=== PATIENT | female | born 2000 | race Caucasian/White ===

== ENCOUNTER 2022-01-11 08:24 | Emergency (ER) | payer MEDICAID, SELFPAY ==
[2022-01-11 08:42] VITALS: BP 148/96; PULSE 97; RESP 16; TEMP 36.5; O2SAT 98
--- NOTE | 2022-01-11 08:47 | W.ED.GENAD ---
Discharge Plan Disposition Patient Disposition: HOME Condition: Stable Discharge Details Clinical Impression: examination or test, negative result Primary Care Provider: Ray Heath ED Provider: Joseline Bolanos Home Meds and New Rx's Prescriptions: Continued Abilify Maintena 400 mg Suspension,Extended Rel Recon 400 mg IM QMONTH 0RF ibuprofen [IBU] 600 mg Tablet 600 mg PO PRN PRN0RF levothyroxine 75 mcg Capsule 75 mcg PO DAILY 0RF magnesium oxide 400 mg magnesium Capsule 400 mg PO DAILY 0RF Discharge Instructions Instructions: Heart Healthy Diet (ED) Additional Instructions: Your test today is negative. Call your [place] pharmacy to transfer your Abilify injection to a local pharmacy here in [place] including [facility] and [facility]. You have been placed on care management's list to arrange for a follow-up appointment with a primary care doctor to establish care and to arrange for your monthly Abilify injections, to obtain thyroid and diabetes testing, and for any of your general medical needs. Return to the emergency department with any worsening or new concerning symptoms. Discharge Data Discharge Physician: Joseline Bolanos Medical Decision Making 21-year-old female who presents for request for test. She denies any acute complaints at this time and has only requesting a test. Blood pressure mildly hypertensive, remainder vitals within normal limits. test negative. No obvious acute findings on exam. Patient also stated that she is living in [facility] and is looking for a local doctor to administer her Abilify injections monthly. She states her primary care doctor is in [facility] and she does not have the gas money to travel to their for the injection. She states she has the Abilify IM medication her hotel room at the [facility] in and needs to find a local doctor to administer this. She states she is due for her next injection on January 16. She also states she has not taken her levothyroxine for several months. She also states she has a family history of diabetes. She also complains of a possible stye in her right eye. Right eye normal to inspection. There is a minimal stye noted to the left lower lateral eyelid. She is advised to apply warm compresses and wash her hands frequently and avoid touching the eye. Do not see an indication for antibiotic ointment at this time but she was advised to continue to monitor.. She was offered to check a fingerstick glucose here but she declines. She would rather follow-up with the PCP for this. Patient was placed on care management list to arrange for a follow-up appointment with a local primary care doctor to establish care and to administer her monthly Abilify injections. Also indicated on care management list to obtain thyroid function testing and glucose testing at the PCP. Return immediately to the emergency department if you develop any worsening or new concerning symptoms. Medical Records Medical records reviewed: Yes I reviewed the patient's medical records. HPI General Mode of arrival: ambulatory. Date/Time Provider Initiated Documentation: 01/11/22 08:47. Limitations to Documentation: no limitations. Information obtained by: patient. HPI Narrative: Patient is a 21-year-old female who presents for test. Patient states she cannot afford to obtain a test and felt tired yesterday so she wanted to make sure she is not . She denies any acute symptoms today. 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 Review of Systems All systems reviewed & are unremarkable except as noted in HPI and below Constitutional Constitutional: Reports as per HPI, Denies chills and Denies fever(s) Eyes Eyes: Denies blurry vision ENT Ears, Nose, Mouth, and Throat: Denies dizziness, Denies sore throat and Denies throat swelling Cardiovascular Cardiovascular: Denies chest pain and Denies dyspnea Respiratory Respiratory: Denies cough and Denies dyspnea Gastrointestinal Gastrointestinal: Denies abdominal pain, Denies diarrhea and Denies vomiting Genitourinary Genitourinary: Denies hematuria and Denies dysuria Musculoskeletal Musculoskeletal: Denies back pain and Denies numbness Integumentary/Breasts Skin/Breast: Denies lesions and Denies rash Neurologic Neurologic: Denies dizziness, Denies localized weakness and Denies numbness Allergic/Immunologic Allergic/Immunologic: Denies throat swelling PFSH All Active Problems (Updated 01/11/22 @ 09:03 by Joseline Bolanos DO) examination or test, negative result (Acute) Medical History (Updated 01/11/22 @ 09:03 by Joseline Bolanos DO) Bipolar affective disorder Marlene's disease Hypothyroidism Surgical History (Updated 01/11/22 @ 09:01 by Joseline Bolanos DO) History of adenoidectomy Social History Smoking/Tobacco Use Status: Current every day Tobacco Type: e-cigarettes Smoking risk assessment performed?: Yes Alcohol Intake: never Drug use: Occasionally Substance use type: marijuana Do you feel safe at home: Yes Do you feel safe in your relationship?: Yes Exam Const General: cooperative and no acute distress Orientation: alert, awake and oriented x3 HENMT Head: normal to inspection Ears: hearing grossly normal bilaterally and external ears normal Mouth: oral mucosae normal Eyes General: appearance normal, both eyes and all related structures Neck Neck: normal visual inspection Resp Effort & Inspection: normal respiratory effort and able to speak in complete sentences Auscultation: clear to auscultation bilaterally Cardio Rate: regular rate Rhythm: regular rhythm GI Inspection: obesity Palpation: soft, not firm, no guarding, not rigid and nontender Skin General skin exam: no rashes or lesions noted Neuro General: patient alert, patient awake and patient oriented x3 Motor: muscle tone normal throughout Extrem General: normal to inspection, full ROM and no edema Psych Appearance: grossly normal Affect: normal affect Course Vital Signs Vital signs: Vital Signs Temperature 97.7 F 01/11/22 08:42 Pulse 97 H 01/11/22 08:42 Respiratory Rate 16 01/11/22 08:42 Blood Pressure 148/96 H 01/11/22 08:42 Pulse Oximetry 98 01/11/22 08:42 Temperature 97.7 F 01/11/22 08:42 Temperature Source Skin 01/11/22 08:42 Pulse 97 H 01/11/22 08:42 Respiratory Rate 16 01/11/22 08:42 Respiratory Effort 01/11/22 08:45 Blood Pressure 148/96 H 01/11/22 08:42 Blood Pressure Position Sitting 01/11/22 08:42 Pulse Oximetry 98 01/11/22 08:42 Oxygen Delivery Method Room Air 01/11/22 08:42 Oxygen Flow Rate 0 01/11/22 08:42 Pain Level 0 01/11/22 08:42 Lab/Test Results Lab/Test Results: POC- Test(urine) Negative
--- NOTE | 2022-01-11 09:13 | NUR.NOTE ---
Dr. Bolanos requesting PCP establishment,patient will need Abilify inj in 5 days, she also needes evaluation of glucose and thyroid p/patient. CLB
== END 2022-01-11 09:12 | disposition home or self-care (01) ==
LOC: ER 09:12
PROVIDERS: Emergency Provider Physician Assistant; PCP Family Medicine
DX: H00.015 Hordeolum externum left lower eyelid (principal); Z32.02 Encounter for pregnancy test, result negative
CPT/HCPCS: 81025; 99282

== ENCOUNTER 2022-03-21 19:40 | Emergency (ER) | payer MEDICAID, SELFPAY ==
[2022-03-21 19:42] VITALS: BP 140/82; PULSE 115; RESP 18; TEMP 36.8; O2SAT 99
[2022-03-21 19:57] VITALS: RESP 18
--- NOTE | 2022-03-21 20:14 | ED.GENADUL_ITS ---
Discharge Plan Disposition Patient Disposition: HOME Condition: Stable Discharge Details Clinical Impression: Cellulitis of axilla, left Primary Care Provider: Ray Heath ED Provider: Matt Epps Home Meds and New Rx's Prescriptions: New sulfamethoxazole-trimethoprim [Bactrim DS] 800-160 mg tablet 1 tab PO BID Qty: 20 0RF Continued levothyroxine 75 mcg capsule 75 mcg PO DAILY Qty: 90 0RF Abilify Maintena 400 mg Suspension,Extended Rel Recon 400 mg IM QMONTH ibuprofen [IBU] 600 mg Tablet 600 mg PO PRN PRN magnesium oxide 400 mg magnesium Capsule 400 mg PO DAILY Discharge Instructions Instructions: Cellulitis (ED) Additional Instructions: Bactrim as directed. Warm soaks and/or compresses every 2 hours for 20 minutes. Please watch for new or worsening symptoms and return to the ER for any concerns. Lastly I recommend following up with your primary care provider in [place] or if you do decide to stay in the area I recommend establishing a local primary care provider. Discharge Data Discharge Date/Time-TO BE ENTERED AT DEPARTURE: 03/21/22 20:35 Medical Decision Making This is a 21-year-old female who presents with an infection under her left axilla the past 3 or 4 days, she reports that she is right hand dominant. She denies fever, rash elsewhere on her body, spreading redness from her axillary region. Clinically she appears well, nontoxic. She does tell me that she was diagnosed with COVID last Wednesday but denies any symptoms and reports she is feeling well from that. Clinically it would appear as though she has a localized infection, likely started out as a small pimple or abscess but has drained itself, there is no indication for I&D at this time. We will initiate antibiotic therapy. First dose given now Standard discharge and return precautions were provided. Patient understands, is agreeable to this plan, and has no additional questions or concerns upon discharge. This documentation was generated using [employer] system, please disregard any oddities of phrase or misspellings. Medical Records Medical records reviewed: Yes I reviewed the patient's medical records. Lab Data Lab results reviewed: No I reviewed the patient's lab results. HPI General Mode of arrival: EMS . Date/Time Provider Initiated Documentation: 03/21/22 19:47 . Limitations to Documentation: no limitations . Information obtained by: patient and EMS . History of Present Illness 21 year old F presents to the emergency department with the chief complaint of Left axilla infection, described as moderate, with intensity rated at 5. Quality is described as aching, and is localized to the left (Axilla). Patient reports no radiation. Patient started experiencing this day(s) (4) and it has been constant. No relieving factors improve symptom(s), No exacerbating factors reported . Patient notes no other symptoms.. Patient did receive the following treatments prior to arrival, none Related Data Home Medications Medication Instructions Recorded Confirmed aripiprazole 400 mg intramuscular 400 mg IM QMONTH 01/11/22 03/21/22 suspension,extended release (Abilify Maintena) ibuprofen 600 mg tablet (IBU) 600 mg PO PRN PRN 01/11/22 03/21/22 magnesium oxide 400 mg PO DAILY 01/11/22 03/21/22 levothyroxine 75 mcg capsule 75 mcg PO DAILY #90 caps 01/16/22 03/21/22 sulfamethoxazole 800 1 tab PO BID #20 tabs 03/21/22 mg-trimethoprim 160 mg tablet (Bactrim DS) Previous Rx's Medication Instructions Recorded levothyroxine 75 mcg capsule 75 mcg PO DAILY #90 caps 01/16/22 sulfamethoxazole 800 1 tab PO BID #20 tabs 03/21/22 mg-trimethoprim 160 mg tablet (Bactrim DS) Allergies Allergy/AdvReac Type Severity Reaction Status Date / Time azithromycin AdvReac Hives Unverified 01/16/22 13:06 General Stated Complaint: GenMedical ISAURA: 3 Review of Systems Constitutional Constitutional: Denies fever(s) and Denies weakness Musculoskeletal Musculoskeletal: Denies numbness and Denies tingling Integumentary/Breasts Skin/Breast: Reports erythema Neurologic Neurologic: Denies numbness, Denies tingling and Denies weakness PFSH All Active Problems (Updated 03/21/22 @ 20:28 by DAVE Lubin) Cellulitis of axilla, left (Acute) Medical History Bipolar affective disorder Marlene's disease Hypothyroidism Surgical History History of adenoidectomy Social History Smoking/Tobacco Use Status: Current every day Tobacco Type: e-cigarettes Smoking risk assessment performed?: Yes Alcohol Intake: never Drug use: Occasionally Substance use type: marijuana Do you feel safe at home: Yes Do you feel safe in your relationship?: Yes Exam Const General: cooperative, healthy appearing, comfortable and no acute distress Orientation: alert and awake [facility] Head: normal to inspection, normocephalic and atraumatic Eyes General: appearance normal, both eyes and all related structures Conjunctivae: conjunctivae normal Neck Neck: normal visual inspection, full ROM, no lymphadenopathy, trachea midline, supple and nontender Chest Chest: normal inspection of the chest Resp Effort & Inspection: normal respiratory effort and able to speak in complete sentences Skin Other: Left axilla lateral aspect there is a 0.5 cm shallow wound with no active drainage. There is no induration or fluctuance. No pointing abscess. Surrounding the wound in all directions approximately 3 cm there is macular erythema, warmth, tenderness. There is no lymphangitic streaking or lymphadenopathy. Full range of motion of the shoulder. Neuro, vascular, tendon intact. Neuro General: patient alert, patient awake, moves all extremities and no focal motor deficits Cognition: normal cognition Speech: speech normal Sensory Exam: no sensory deficits noted Extrem General: full ROM and capillary refill normal Psych Appearance: grossly normal Mental Status: mental status grossly normal Course Vital Signs Vital signs: Vital Signs Temperature 36.8 C 03/21/22 19:42 Pulse 115 H 03/21/22 19:42 Respiratory Rate 18 03/21/22 19:42 Blood Pressure 140/82 03/21/22 19:42 Pulse Oximetry 99 03/21/22 19:42 Temperature 36.8 C 03/21/22 19:42 Temperature Source Temporal Artery Scan 03/21/22 19:42 Pulse 115 H 03/21/22 19:42 Respiratory Rate 18 03/21/22 19:57 Respiratory Effort Non-Labored 03/21/22 19:57 Respiratory Depth Normal 03/21/22 19:57 Respiratory Pattern Normal 03/21/22 19:57 Blood Pressure 140/82 03/21/22 19:42 Blood Pressure Position Supine 03/21/22 19:42 Pulse Oximetry 99 03/21/22 19:42 Oxygen Delivery Method Room Air 03/21/22 19:42 Oxygen Flow Rate 0 03/21/22 19:42 Pain Level 4 03/21/22 19:42
[2022-03-21] MEDS: Sulfameth/Trimeth DS TAB 1 TAB PO (20:19)
[2022-03-21 20:34] VITALS: BP 132/80; PULSE 70; RESP 18; TEMP 37; O2SAT 98
== END 2022-03-21 20:35 | disposition home or self-care (01) ==
LOC: ER 20:30
PROVIDERS: Emergency Provider Physician Assistant; PCP Family Medicine
DX: L03.112 Cellulitis of left axilla (principal)
CPT/HCPCS: 81025; 99283

== ENCOUNTER 2022-06-14 05:57 | Emergency (ER) | payer MEDICARE, MEDICAID, SELFPAY ==
[2022-06-14 06:02] VITALS: BP 122/60; PULSE 79; RESP 18; TEMP 37; O2SAT 99
--- NOTE | 2022-06-14 06:21 | W.ED.GENAD ---
Discharge Plan Disposition Patient Disposition: HOME Condition: Good Discharge Details Clinical Impression: Skin erosion Primary Care Provider: Betty Ochoa ED Provider: Brandon Siegel Home Meds and New Rx's Prescriptions: No Action hydroxyzine HCl 25 mg Tablet 25 mg PO 1XD PRN (Reason: Anxiety) risperidone [Risperdal] 1 mg Tablet 2 mg PO 1XD PRN (Reason: Anxiety) Invega Sustenna 156 mg/mL Syringe 156 mg IM PER PKG DIR ibuprofen [IBU] 600 mg Tablet 600 mg PO PRN PRN magnesium oxide 400 mg magnesium Capsule 400 mg PO DAILY Discharge Instructions Instructions: Chronic Wound Care (ED) Additional Instructions: At this time you have developed a mild ulcer in your skin secondary to the infection that you had previously had. To allow this to heal you need to do a few things. #1: Keep the area bandaged to prevent any rubbing. Make sure to layer socks or padding in the area to prevent any further erosion. Reduce the stress of your bra on that area. #2: Keep the area as dry as possible, allowing it to breathe, to help with healing. #3: Apply a barrier cream like diaper cream or butt paste to the underside of your breast to prevent any rubbing in that area. #4: Continue to wash once or twice per day with your clindamycin wash that has been prescribed for you. Apply this to your armpits, under your breasts, and in your groin area. If you do notice any worsening redness, any warmth, or worsening lesions this may represent an infection although this is not the case currently. If you do notice this return immediately for reassessment for potential antibiotic administration. If you notice any worsening of your symptoms, or any new symptoms such as vomiting, diarrhea, fever, chills, shortness of breath, chest pain, numbness, weakness, or fainting , please return immediately to the emergency department for reevaluation. Please follow up with your primary care provider as soon as possible for reassessment and reevaluation. As always, it was a pleasure participating in your medical care today. Referrals: Betty Ochoa, VIET [Primary Care Provider] - Medical Decision Making This is a 21-year-old female with a past medical history of hidradenitis suppurativa who presents today for a lesion under her right breast. Patient states that a few weeks ago she had little lesion that appeared like a swollen pimple, that then burst and got some purulent discharge. She was prescribed doxycycline at that time and clindamycin wash. Unfortunately since then the area which is located right on the line of her bra strap has eroded with time and has caused continued tenderness. She has not been bandaging the area. She denies any fever or chills or new redness. She denies any other complaints at this time. The area is tender to the touch. It is been worsening instead of improving. Physical exam demonstrates a small ulcerated lesion under the right breast at the skin fold, which is right where the patient's bra strap/bra wire applies notable pressure. Symptoms consistent with a previously deroofed folliculitis, which is now led to a mild ulcer. No cellulitis to indicate need for the for antibiotic at this time. We will recommend bandaging, keeping the area dry, a barrier cream for the rest of the breast to present any other skin breakdown, we will also recommend padding for that area to give the area an opportunity to heal. Patient does have multiple bottles of clindamycin wash, and I recommend that she continue to use these at home as directed. Discussed red flags which to return. I have extensively reviewed the treatment plan and discharge instructions with the patient. I have addressed all patient concerns at this time. The patient was made aware of what symptoms to monitor for that would warrant a return to the emergency department. Discussed the plan with the patient, they demonstrate verbal understanding and agreement with our assessment and plan at this time. The documentation in this chart was dictated using [employer] dictation software. Please excuse any dictation errors. HPI General Date/Time Provider Initiated Documentation: 06/14/22 06:03. HPI Narrative: This is a 21-year-old female with a past medical history of hidradenitis suppurativa who presents today for a lesion under her right breast. Patient states that a few weeks ago she had little lesion that appeared like a swollen pimple, that then burst and got some purulent discharge. She was prescribed doxycycline at that time and clindamycin wash. Unfortunately since then the area which is located right on the line of her bra strap has eroded with time and has caused continued tenderness. She has not been bandaging the area. She denies any fever or chills or new redness. She denies any other complaints at this time. The area is tender to the touch. It is been worsening instead of improving. Related Data Home Medications Medication Instructions Recorded Confirmed ibuprofen 600 mg tablet (IBU) 600 mg PO PRN PRN 01/11/22 06/14/22 magnesium oxide 400 mg PO DAILY 01/11/22 06/14/22 hydroxyzine HCl 25 mg tablet 25 mg PO 1XD PRN Anxiety 06/14/22 06/14/22 paliperidone palmitate 156 mg/mL 156 mg IM PER PKG DIR 06/14/22 06/14/22 intramuscular syringe (Invega Sustenna) risperidone 1 mg tablet (Risperdal) 2 mg PO 1XD PRN Anxiety 06/14/22 06/14/22 Allergies Allergy/AdvReac Type Severity Reaction Status Date / Time cephalexin Allergy Unverified 06/14/22 06:24 azithromycin AdvReac Hives Unverified 06/14/22 06:24 General Stated Complaint: RashLesion ISAURA: 4 Review of Systems All systems reviewed & are unremarkable except as noted in HPI and below PFSH All Active Problems Skin erosion (Acute) Medical History Bipolar affective disorder Marlene's disease Hypothyroidism Surgical History History of adenoidectomy Social History Smoking/Tobacco Use Status: Current every day Tobacco Type: e-cigarettes Smoking risk assessment performed?: Yes Alcohol Intake: never Drug use: Occasionally Substance use type: marijuana Do you feel safe at home: Yes Do you feel safe in your relationship?: Yes Exam Narrative Exam Narrative: 1.Const: Well-nourished, Well-developed, appearing stated age 2.Eyes: PERRL, no conjunctival injection, and symmetrical lids. 3.ENT: Atraumatic external nose and ears. Moist MM. Neck: Symmetric, trachea midline, No thyromegaly. 4.CVS: +S1/S2, No murmurs or gallops. Peripheral pulses 2+ and equal in all extremities. Brisk capillary refill in all extremities. 5.RESP: Unlabored respiratory effort. Clear to auscultation bilaterally. No wheezes rales or rhonchi 6.GI: Soft, Nontender/Nondistended, No hepatosplenomegaly. No guarding or rebound. 7.MSK: Normocephalic/Atraumatic, Extremities w/o deformity or ttp No cyanosis or clubbing, Normal movement of all extremities 8.Skin: Patient's area under the right breast demonstrates a small ulcerated lesion about 3 to 4 mm wide. No bleeding, drainage, or signs of purulent material. It is right on the line of the patient's bra strap. It appears to be combination of a previously deroofed small abscess, that has now become ulcerated slightly secondary to the continued pressure. No evidence of cellulitis clinically. No other significant lesions 9.Neuro: diffusion operator II-XII grossly intact. Sensation grossly intact, no focal neurologic deficits. 10.Psych: (AAO) x3. Appropriate mood and affect Course Vital Signs Vital signs: Vital Signs Temperature 37.0 C 06/14/22 06:02 Pulse 79 06/14/22 06:02 Respiratory Rate 18 06/14/22 06:02 Blood Pressure 122/60 06/14/22 06:02 Pulse Oximetry 99 06/14/22 06:02 Temperature 37.0 C 06/14/22 06:02 Temperature Source Skin 06/14/22 06:02 Pulse 79 06/14/22 06:02 Respiratory Rate 18 06/14/22 06:02 Blood Pressure 122/60 06/14/22 06:02 Blood Pressure Position Sitting 06/14/22 06:02 Pulse Oximetry 99 06/14/22 06:02 Oxygen Delivery Method Room Air 06/14/22 06:02 Oxygen Flow Rate 0 06/14/22 06:02 Pain Level 0 06/14/22 06:02
== END 2022-06-14 06:50 | disposition home or self-care (01) ==
PROVIDERS: Emergency Provider Student in an Organized Health Care Education/Training Program; PCP Nurse Practitioner Family
DX: L98.8 Other specified disorders of the skin and subcutaneous tissue (principal); F17.290 Nicotine dependence, other tobacco product, uncomplicated
CPT/HCPCS: 99281; 99282

== ENCOUNTER 2022-08-24 23:25 | Outpatient (REF) | payer MEDICARE, MEDICAID, SELFPAY ==
[2022-08-26 11:37] LABS: COVID-19 RT-PCR UVMMC Result Negative (Negative)
== END 2022-08-24 23:26 | disposition home or self-care (01) ==
LOC: NCHCN 23:25
PROVIDERS: PCP Nurse Practitioner Family; Visit Provider Nurse Practitioner Family
DX: R04.2 Hemoptysis (principal); Z20.822 Contact with and (suspected) exposure to COVID-19
CPT/HCPCS: U0003